=== PATIENT | male | born 1995 | race Caucasian/White ===

== ENCOUNTER → 2020-04-11 | Outpatient (CLI) | payer BC | LOC: LABNPT 05:55 | PROVIDERS: ATTEND Family Medicine | DX: R09.81 Nasal congestion (principal); Z20.828 Contact with and (suspected) exposure to other viral communicable diseases | CPT/HCPCS: 87635 ==

== ENCOUNTER 2021-03-08 12:58 | Emergency (ER) | payer OTHER ==
[~2021-03-08] VITALS: Ht 180.3 cm; Wt 78.5 kg
--- NOTE | 2021-03-08 13:53 | ED General ---
General Chief Complaint: General Problems/Pain Stated Complaint: CHEST PAIN Nursing Triage Note: Patient reports the was experiencing pain in his lower chest on the right side the day after lifting several heavy boxes at work. Patient reports that it went away when he took asa. He has been experiencing this pain off and on for two days. Patient reports he is not used to lifting heavy objects Source of Information: Patient Exam Limitations: No Limitations (BRENDEN CARTER APRN) History of Present Illness Date Seen by Provider: Mar 08, 2021 Time Seen by Provider: 13:43 Initial Comments This Is a 25-year-old male who presents to the ER with complaints of right chest wall pain that started 2 days ago. States that he recently started lifting heavy boxes at work and his pain began shortly afterwards. He has taken ibuprofen 200 mg at 8:00 this morning and then again at 1230. States that when his pain was at its most severe it was 10/10, sharp, constant, stabbing. However feels that the ibuprofen is beginning to help as his pain is much more tolerable at this time. No fever, chills, cough, shortness of breath. (BRENDEN CARTER APRN) Allergies and Home Medications Allergies Coded Allergies: No Known Drug Allergies (Unverified , 03/08/21) Patient Home Medication List Home Medication List Reviewed: Yes (BRENDEN CARTER APRN) Review of Systems Review of Systems Constitutional: no symptoms reported EENTM: no symptoms reported Respiratory: no symptoms reported Cardiovascular: no symptoms reported Gastrointestinal: no symptoms reported Genitourinary: no symptoms reported Musculoskeletal: see HPI Skin: no symptoms reported Psychiatric/Neurological: No Symptoms Reported Hematologic/Lymphatic: No Symptoms Reported Immunological/Allergic: no symptoms reported (BRENDEN CARTER APRN) Past Htmuspw-Vrwnxq-Kmmplf Hx Patient Social History Tobacco Use?: No Substance use?: No Alcohol Use?: No Pt feels they are or have been: No (BRENDEN CARTER APRN) Immunizations Up To Date Influenza Vaccine Up-to-Date: Yes; Up-to-Date First/Initial COVID19 Vaccinat: 10/30/20 Second COVID19 Vaccination Jon: 11/27/20 (BRENDEN CARTER APRN) Physical Exam Vital Signs Vital Signs - First Documented 03/08/21 03/08/21 13:45 14:47 Temp 36.7 Pulse 76 Resp 14 B/P (MAP) 139/93 (108) Pulse Ox 99 O2 Delivery Room Air (MARCIO GARCIA MD) Vital Signs Capillary Refill : Less Than 3 Seconds (BRENDEN CARTER APRN) Height, Weight, BMI Height: '" Weight: lbs. oz. kg; 24.00 BMI Method: General Appearance: No Apparent Distress, WD/WN Eyes: Bilateral Eye Normal Inspection, Bilateral Eye EOMI HEENT: PERRL/EOMI, Normal ENT Inspection Neck: Full Range of Motion, Normal Inspection Respiratory: Lungs Clear, Normal Breath Sounds, No Accessory Muscle Use, No Respiratory Distress, Other (right anterior chest wall tenderness with palpation between ribs 5-6) Cardiovascular: Regular Rate, Rhythm, No Edema, No Murmur, Normal Peripheral Pulses Gastrointestinal: Normal Bowel Sounds, No Organomegaly, No Pulsatile Mass, Non Tender, Soft; No Distended Back: Normal Inspection Extremity: Normal Inspection, Normal Range of Motion Neurologic/Psychiatric: Alert, Oriented x3, No Motor/Sensory Deficits, Normal Mood/Affect Skin: Normal Color, Warm/Dry (BRENDEN CARTER APRN) Progress/Results/Core Measures Suspected Sepsis SIRS Temperature: Pulse: 76 Respiratory Rate: 14 Blood Pressure 139 /93 Mean: 108 (BRENDEN CARTER APRN) Results/Orders My Orders Orders - MARCIO GARCIA MD Ekg Tracing (03/08/21 13:29) (MARCIO GARCIA MD) Vital Signs/I&O 03/08/21 03/08/21 13:45 14:47 Temp 36.7 37.0 Pulse 76 79 Resp 14 15 B/P (MAP) 139/93 (108) 119/83 Pulse Ox 99 O2 Delivery Room Air (MARCIO GARCIA MD) Vital Signs/I&O Capillary Refill : Less Than 3 Seconds (BRENDEN CARTER APRN) Blood Pressure Mean: 108 Progress Note : Progress Note Patient examined and in no acute distress. CP is reproducible with palpation. Based on history and exam this is likely musculoskeletal related versus cardiac. However will obtain baseline EKG and chest x-ray to rule out any infectious etiology. Orders placed for Toradol 30 mg IM. States pain is completely gone after Toradol and is feeling much improved. CXR and EKG neg for acute pathology. Reviewed discharge POC and he is agreeable with plan. (BRENDEN CARTER APRN) ECG Initial ECG Impression Date: Mar 08, 2021 Initial ECG Impression Time: 13:24 Initial ECG Rate: 61 Initial ECG Rhythm: Normal Sinus Initial ECG Intervals: Normal Initial ECG Impression: Normal Initial ECG Comparisson: No Previous ECG Available (BRENDEN CARTER APRN) Diagnostic Imaging Diagonstic Imaging: Xray Plain Films/CT/US/NM/MRI: chest Comments [facility] [place], [place] NAME: JESS ADAMSON [facility] REC#: [id number] PT STATUS: REG ER : 1995 PHYSICIAN: BRENDEN CARTER APRN ADMIT DATE: 03/08/21/ER Signed Date of Exam:03/08/21 CHEST 1 VIEW, AP/PA ONLY INDICATION: Lower chest pain on the right. TIME OF EXAM: 2:28 p.m. COMPARISON: No prior studies are available for comparison. FINDINGS: The heart size is normal. The pulmonary vascularity is unremarkable. The lungs are clear. No infiltrate, effusion or pneumothorax is detected. IMPRESSION: No acute cardiopulmonary process is detected. Dictated by: Dictated on workstation # [id number] Dict: 03/08/21 1439 Trans: 03/08/21 1600 [id number] Interpreted by: CAMERON DOMINGUEZ MD Electronically signed by: CAMERON DOMINGUEZ MD 03/08/21 1600 Reviewed: Reviewed by Me (BRENDEN CARTER APRN) Departure Impression Primary Impression: Costochondral chest pain Disposition: 01 HOME, SELF-CARE Condition: Improved Departure-Patient Inst. Referrals: JOSE JUAN PINA MD (PCP/Family) Primary Care Physician Patient Instructions: Costochondritis Add. Discharge Instructions: Plan: 1. May take Ibuprofen 600mg every 6 hours as needed for severe pain. 2. Use warm compress 20 minutes at a time 4-6x per day. 3. Avoid heavy lifting, twisting, pulling for a week. Start exercise back slowly. 4. Follow up with your doctor if your symptoms persist. 5. Return for any new, concerning, or worsening symptoms. All discharge instructions reviewed with patient and/or family. Voiced understanding. ATTENDING PHYSICIAN NOTE: I was physically present as attending physician in the emergency department during the care of this patient, but I was not directly involved in the decision making or delivery of care for this patient. (MARCIO GARCIA MD) BRENDEN CARTER APRN Mar 08, 2021 13:53 MARCIO GARCIA MD Mar 09, 2021 14:38
[2021-03-08] MEDS ORDERED: KETOROLAC 30 MG/ML VIAL IM ONE (14:00)
--- NOTE | 2021-03-08 14:41 | Diagnostic Imaging Report ---
INDICATION: Lower chest pain on the right. TIME OF EXAM: 2:28 p.m. COMPARISON: No prior studies are available for comparison. FINDINGS: The heart size is normal. The pulmonary vascularity is unremarkable. The lungs are clear. No infiltrate, effusion or pneumothorax is detected. IMPRESSION: No acute cardiopulmonary process is detected. Dictated by: Dictated on workstation # [id number]
[2021-03-08 14:47] VITALS: BP 119/83
== END 2021-03-08 14:47 | disposition home or self-care (01) ==
LOC: EDUNIT# 12:58 → ER 12:59
DX: R07.89 Other chest pain (principal); X50.0XXA Overexertion from strenuous movement or load, initial encounter; Y92.59 Other trade areas as the place of occurrence of the external cause; Y99.0 Civilian activity done for income or pay
CPT/HCPCS: 71045